=== PATIENT | female | born 1985 | race African-American/Black ===

== ENCOUNTER 2024-06-13 22:09 | Observation (INO) ==
--- NOTE | 2024-06-14 00:16 | Emergency Department Note ---
HPI - General Adult General Chief complaint: General Complaint Stated complaint: SICKLE CELL CRISIS Source: patient Mode of arrival: walk-in Limitations: no limitations History of Present Illness HPI narrative: This patient is 58 years old female with past medical history of sickle cell disease congestive heart failure liver cirrhosis and atrial fibrillation who presents to the ED with complaint of allover body aches worsening for the past several days. Patient states that her body aches started on Tuesday and have been getting worse.Patient states that she thinks maybe her hemoglobin has gone low.She ranks the pain as 8/10 on pain scale. Rest of the vital signs are normal. Patient denies chest pain, headache, nausea vomiting. Onset (ago): day(s) Radiation: Reports non-radiation Severity: moderate Quality: Reports other Pain Consistency: Reports constant Relieving factors: Reports none Exacerbating factors: Reports none Associated symptoms: Reports denies other symptoms Treatments prior to arrival: Reports none Related Data Home Medications Medication Instructions Recorded Confirmed amiodarone 200 mg tablet 200 mg PO BID 03/10/24 06/14/24 cholecalciferol (vitamin D3) 25 25 mcg PO BID 03/10/24 06/14/24 mcg (1,000 unit) capsule (Vitamin D3) folic acid 1 mg tablet 1 mg PO BID 03/10/24 06/14/24 hydromorphone 4 mg tablet 4 mg PO TID 03/10/24 06/14/24 levothyroxine 75 mcg tablet 75 mcg PO DAILY 03/10/24 06/14/24 magnesium oxide 400 mg (241.3 mg 400 mg PO DAILY 03/10/24 06/14/24 magnesium) tablet midodrine 5 mg tablet 5 mg PO TID 03/10/24 06/14/24 oxycodone myristate 18 mg capsule 18 mg PO BID 03/10/24 06/14/24 sprinkle extended release 12hr(DON'T CRUSH) (Xtampza ER) vitamin B complex-vitamin C-folic 1 tab PO DAILY 03/10/24 06/14/24 acid 0.8 mg tablet (Dominique-Joseph) hydroxyurea 500 mg capsule 500 mg PO Q12H 03/30/24 06/14/24 Allergies Allergy/AdvReac Type Severity Reaction Status Date / Time adhesive tape Allergy Mild Rash Verified 06/13/24 22:58 ceftriaxone (From Rocephin) Allergy Mild Anaphylaxis Verified 06/13/24 22:58 iron Allergy Mild Anaphylaxis Verified 06/13/24 22:58 levofloxacin (From Levaquin) Allergy Mild Anaphylaxis Verified 06/13/24 22:58 morphine Allergy Mild Anaphylaxis Verified 06/13/24 22:58 Review of Systems Status of ROS 10 or more systems reviewed and unremark able except as noted in history and below Constitutional Denies: fever, chills, change in weight or fatigue Eyes Denies: change in vision, blurry vision, blind spots, light sensitivity or eye discomfort Ears, nose, mouth, and throat Denies: throat pain, neck pain, throat swelling, difficulty swallowing, hoarseness or mouth pain Cardiovascular Denies: chest pain, palpitations, edema, swelling of feet/ankles, lightheadedness or shortness of breath with exertion Respiratory Denies: shortness of breath, cough, wheezing, stridor, pain on inspiration or change in phlegm color Gastrointestinal Denies: abdominal pain, nausea, vomiting or coffee grounds in vomit Genitourinary Denies: painful urination, urinary frequency, urinary urgency or urinary incontinence Musculoskeletal Denies: back pain, neck pain, extremity pain, extremity swelling or joint pain Integumentary/Breast Denies: rash, itching, redness, skin pain, skin tenderness or skin swelling Neurological Denies: headache, numbness in extremities, weakness in extremities or lack of coordination Psychiatric Denies: anxiety, mood swings, panic attacks, change in sleep pattern or hopelessness Endocrine Denies: excessive urination, excessive thirst, fatigue, cold intolerance or excessive sweating Hematologic/Lymphatic Denies: easy bruising, easy bleeding or enlarged lymph nodes Allergic/Immunologic Denies: hives, throat swelling, tongue swelling or facial swelling [facility] Medical History (Updated 03/30/24 @ 17:01 by Jasmina Garcia RN) Anemia Atrial flutter CHF (congestive heart failure) Sickle cell anemia Surgical History (Updated 03/30/24 @ 17:01 by Jasmina Garcia RN) History of removal of Port-a-Cath Hx of cholecystectomy Social History Smoking status: never smoker Within the past year, how often did you have a drink containing alcohol: never Score interpretation: A score less than 3 is consistent with normal alcohol consumption. Non-prescribed substance use: denies use What is your current living situation: I presently have a place to live Problems where you live: no known problems In the past 12 months, utilities in danger of being shut off: no In past 12 months, lack of transportation kept you from medical appts, meetings, work, or getting things needed for daily living: No Highest level of school completed/degree received: College Little interest or pleasure in doing things: not at all Feeling down, depressed, or hopeless: not at all Feel stressed/tense/nervous/anxious/difficulty sleeping: not at all Life stressors: other Life stressor details: 1 Due to disability, difficulty making decisions: No Exam Constitutional: no apparent distress and no limitations Vital Signs - 24 hr 06/13/24 22:40 06/13/24 23:00 06/13/24 23:30 Temperature 98.5 F Pulse Rate 74 76 74 Respiratory Rate 16 15 15 Blood Pressure 121/73 110/70 108/65 Pulse Oximetry 100 99 99 Oxygen Delivery Me thod Room Air 06/14/24 00:00 06/14/24 00:30 06/14/24 01:00 Temperature 98.5 F Pulse Rate 80 81 76 Respiratory Rate 15 16 16 Blood Pressure 135/79 113/63 94/57 Pulse Oximetry 98 99 99 Oxygen Delivery Me thod Room Air 06/14/24 01:30 06/14/24 02:00 Temperature 98.5 F 98.5 F Pulse Rate 75 73 Respiratory Rate 16 16 Blood Pressure 97/55 93/54 Pulse Oximetry 99 99 Oxygen Delivery Me thod Room Air Room Air HENMT: normocephalic, head/scalp atraumatic, hearing grossly normal bilaterally and external ears normal Eyes: PERRL, EOMs intact bilaterally, conjunctivae normal and no scleral icterus Neck/C-Spine: visual inspection normal, trachea midline, cervical spine nontender and cervical full ROM noted Lymph: no lymphadenopathy noted and no lymphedema noted Chest: inspection of chest normal and palpation of chest normal Respiratory: breath sounds equal bilaterally, normal respiratory effort and clear to auscultation bilaterally Cardiovascular: normal heart rate noted, regular rhythm noted, no gallop and no rub Gastrointestinal: abdomen normal to inspection, abdomen soft to palpation and nontender to palpation Genitourinary: no CVA tenderness, bladder normal to palpation and external appearance normal Back/Pelvis: spine normal to inspection, no thoracic spine tenderness and no lumbar spine tenderness Extremities: normal to inspection and normal to palpation Neurology: milieu manager II-XII intact, no movement abnormality noted and no focal motor deficit noted Psychiatry: mental status grossly normal, oriented x3, thought process normal and cooperative Feel stressed/tense/nervous/anxious/difficulty sleeping: not at all Due to disability, difficulty making decisions: No Skin: skin color normal and no rash Course Course Hospital Course: This patient is 38 years old female with a history of sickle cell anemia who presents to the ED with complaint of general body ache for the past 1 week. We have obtained the labs and the patient has noted a hemoglobin of 5.8 and hematocrit of 16.8. Patient has also been found to have elevated white blood cell count. We will admit the patient to observation in order to transfuse the patient. Vital Signs Vital signs: Vital Signs Temperature 98.5 F 06/13/24 22:40 Pulse Rate 74 06/13/24 22:40 Respiratory Rate 16 06/13/24 22:40 Blood Pressure 121/73 06/13/24 22:40 Pulse Oximetry 100 06/13/24 22:40 Oxygen Delivery Method Room Air 06/13/24 22:40 Temperature 98.5 F 06/14/24 03:00 Pulse Rate 78 06/14/24 03:00 Respiratory Rate 16 06/14/24 03:00 Blood Pressure 101/58 06/14/24 03:00 Pulse Oximetry 99 06/14/24 03:00 Oxygen Delivery Method Room Air 06/14/24 03:00 Medical Decision Making Lab Data Labs: Lab Results 06/13/24 06/13/24 Range/Units 00:10 23:25 WBC 21.8 H* (4.3-9.3) K/uL RBC 1.9 L (4.00-5.50) M/uL Hgb 5.8 L* (12.5-15.8) gm/dL Hct 16.8 L* (35.9-46.7) % MCV 89.0 (81.0-93.7) fl MCH 30.4 (27.6-32.2) pg MCHC 34.2 (33.1-35.3) g/dl RDW 17.8 H (11.4-14.2) % Plt Count 400 H (152-353) K/uL MPV 9.6 (6.9-10.8) fl Gran % 37.6 L (47.8-71.3) % Lymph % (Auto) 49.8 H (20.0-43.0) % [place] % (Auto) 8.8 (3.6-9.8) % Eos % (Auto) 1.8 (0.4-2.8) % Baso % (Auto) 2.0 H (0.1-0.85) Lymph # (Auto) 10.9 H (1.1-3.1) [place] # (Auto) 1.9 (1.1-3.1) Eos # (Auto) 0.4 H (0.0-0.2) Baso # (Auto) 0.4 H (0.0-0.1) Absolute Gran (auto) 8.2 H (2.3-6.0) Sodium 141 (136-145) mmol/L Potassium 4.1 (3.6-5.2) mmol/L Chloride 105.0 (98-107) mmol/L Carbon Dioxide 21 (21-32) mmol/L Anion Gap 15.0 H (4-14) mEq/L BUN 30 H (7-18) mg/dL Creatinine 1.4 H (0.6-1.3) mg/dL Estimated GFR 49.7 (>59.9) Glucose 146 H (70-110) mg/dL Calcium 8.4 L (8.5-10.1) mg/dL Total Bilirubin 4.11 H (0.0-1.0) mg/dL AST 119 H (15-37) U/L ALT 94 H (30-65) U/L Alkaline Phosphatase 204 H (50-136) U/L Total Protein 8.0 (6.4-8.2) g/dL Albumin 3.4 (3.4-5.0) g/dL Urine Color Jessica (STRAW/YELL.) Urine Appearance Clear (CLEAR) Ur Specific [place] 1.010 (1.001-1.035) Urine Protein Negative (NEGATIVE) Urine Glucose (UA) Normal (NORMAL) Urine Ketones Negative (NEGATIVE) Urine Occult Blood Negative (NEG - TRACE) Urine Nitrite Negative (NEGATIVE) Urine Bilirubin Negative (NEGATIVE) Urine Urobilinogen Normal (NORMAL) Ur Leukocyte Esterase Negative (NEGATIVE) Fluid pH 5.0 (5 - 9) Discharge Plan Discharge Patient Disposition: Admitted As Observation Condition: Stable Clinical Impression: ARELI (acute kidney injury), Anemia, Leukocytosis Interventions: ED Discharge Assessment Last Done: 06/14/24 03:00 ED Discharge Vital Sign Last Done: 06/14/24 03:00 Emergency Department Charge Sheet Last Done: 06/13/24 23:55 Time of Disposition: 02:27 Discharge Date/Time: 06/14/24 03:00
[2024-06-14 00:18] LABS: Potassium 4.1 mmol/L (3.6-5.2)
[2024-06-14] MEDS: diphenhydrAMINE HCL 50 MG/ML VIAL INJ ONE (00:26)
[2024-06-14 00:53] LABS: Basophils #(Absolute) Auto 0.4 (0.0-0.1); Eosinophils#(Absolute)Auto 0.4 (0.0-0.2); Eosinophils%(Percent) Auto 1.8 % (0.4-2.8); Granulocytes % - Auto 37.6 % (47.8-71.3); Granulocytes#(Absolute)- Auto 8.2 (2.3-6.0); Monocytes #(Absolute)- Auto 1.9 (1.1-3.1); Monocytes %(Percent)- Auto 8.8 % (3.6-9.8); Platelet Count 400 K/uL (152-353)
[2024-06-14 00:56] LABS: Hematocrit 16.8 % (35.9-46.7); White Blood Count 21.8 K/uL (4.3-9.3)
[2024-06-14 02:26] LABS: Urine Appearance CLEAR (CLEAR); Urine Blood NEGATIVE (NEG - TRACE); Urine Color AMBER (STRAW/YELL.); Urine Urobilinogen Normal (NORMAL)
[2024-06-14] MEDS ORDERED: ACETAMINOPHEN 325 MG TABLET PO PRN (02:30)
[2024-06-14] MEDS ORDERED: ONDANSETRON HCL/PF 4 MG/2 ML VIAL INJ PRN (02:30)
[2024-06-14] MEDS ORDERED: PIPERACILLIN SODIUM/TAZOBACTAM 3.375 GM VIAL IV ONE (02:52)
[2024-06-14] MEDS ORDERED: 0.9 % SODIUM CHLORIDE MB+ 100 ML IV ONE (02:52)
[2024-06-14] MEDS: PIPERACILLIN/TAZOBACTAM 3.375 3.375 GM in 0.9 % SODIUM CHLORIDE MB+ 100 ML IV SCH (02:53)
[2024-06-14] MEDS: SODIUM CHLORIDE IV SCH (03:40)
[2024-06-14] MEDS: DEXTROSE IV SCH (03:40)
[2024-06-14] MEDS: diphenhydrAMINE HCL 50 MG/ML VIAL ONE (06:02)
[2024-06-14] MEDS: diphenhydrAMINE HCL 50 MG/ML VIAL INJ PRN (06:02)
[2024-06-14 06:42] LABS: Basophils #(Absolute) Auto 0.3 (0.0-0.1); Basophils%(Percent) Auto 1.3 (0.1-0.85); Eosinophils#(Absolute)Auto 0.4 (0.0-0.2); Eosinophils%(Percent) Auto 2.1 % (0.4-2.8); Granulocytes % - Auto 37.5 % (47.8-71.3); Granulocytes#(Absolute)- Auto 7.5 (2.3-6.0); Monocytes %(Percent)- Auto 9.9 % (3.6-9.8); Platelet Count 380 K/uL (152-353)
[2024-06-14 06:49] LABS: Hematocrit 16.1 % (35.9-46.7)
[2024-06-14 06:55] LABS: Potassium 4.2 mmol/L (3.6-5.2)
[2024-06-14] MEDS: PANTOPRAZOLE SODIUM 40 MG TABLET.DR PO SCH (09:28)
[2024-06-14] MEDS: diphenhydrAMINE HCL 50 MG/ML VIAL INJ SCH (15:06)
[2024-06-14] MEDS: 0.9 % SODIUM CHLORIDE 250 ML IV ONE (15:07)
[2024-06-14] MEDS ORDERED: B COMPLEX VITAMIN C FOLIC ACID 0.8 MG PO SCH (16:00)
[2024-06-14] MEDS: MIDODRINE HCL 5 MG TABLET PO SCH (16:10)
[2024-06-14] MEDS: MAGNESIUM OXIDE 400 MG TABLET PO SCH (16:11)
[2024-06-14] MEDS: HYDROXYUREA 500 MG CAPSULE PO SCH (16:11)
[2024-06-14] MEDS: LEVOTHYROXINE SODIUM 75 MCG TABLET PO SCH (16:11)
--- NOTE | 2024-06-14 16:42 | History & Physical Report ---
H&P: HPI History of Present Illness Chief complaint: ANEMIA,ARELI,LEUKOCYTOSIS Narrative: This patient is 58 years old female with past medical history of sickle cell disease congestive heart failure liver cirrhosis and atrial fibrillation who presents to the ED with complaint of allover body aches worsening for the past several days. Patient states that her body aches started on Tuesday and have been getting worse.Patient states that she thinks maybe her hemoglobin has gone low.She ranks the pain as 8/10 on pain scale. Rest of the vital signs are normal. Patient denies chest pain, headache, nausea vomiting. Admitted to med/surg for observation and treatment. Review of Systems Status of ROS 10 or more systems reviewed and unremark able except as noted in history and below Constitutional Denies: fever, chills, change in weight or fatigue Eyes Denies: change in vision, blurry vision, blind spots, light sensitivity or eye discomfort Ears, nose, mouth, and throat Denies: throat pain, neck pain, throat swelling, difficulty swallowing, hoarseness or mouth pain Cardiovascular Denies: chest pain, palpitations, edema, swelling of feet/ankles, lightheadedness or shortness of breath with exertion Respiratory Denies: shortness of breath, cough, wheezing, stridor, pain on inspiration or change in phlegm color Gastrointestinal Denies: abdominal pain, nausea, vomiting, coffee grounds in vomit or difficulty swallowing Genitourinary Denies: painful urination, urinary frequency, urinary urgency or urinary incontinence Musculoskeletal Denies: back pain, neck pain, extremity pain, extremity sw elling or joint pain Integumentary/Breast Denies: rash, itching, redness, skin pain, skin tenderness or skin swelling Neurological Denies: headache, numbness in extremities, weakness in extremities or lack of coordination Psychiatric Denies: anxiety, mood swings, panic attacks, change in sleep pattern or hopelessness Endocrine Denies: excessive urination, excessive thirst, fatigue, cold intolerance or excessive sweating Hematologic/Lymphatic Denies: easy bruising, easy bleeding or enlarged lymph nodes Allergic/Immunologic Denies: hives, throat swelling, tongue swelling, facial swelling or wheezing [facility] Medical History (Updated 06/15/24 @ 07:36 by Odalys Perry DO) Liver function failure Acquired hyperbilirubinemia Intractable pain Anemia CHF (congestive heart failure) Sickle cell anemia Atrial flutter Surgical History (Updated 03/30/24 @ 17:01 by Jasmina Garcia RN) History of removal of Port-a-Cath Hx of cholecystectomy Social History Smoking status: never smoker Within the past year, how often did you have a drink containing alcohol: never Score interpretation: A score less than 3 is consistent with normal alcohol consumption. Non-prescribed substance use: denies use What is your current living situation: I presently have a place to live Problems where you live: no known problems In the past 12 months, utilities in danger of being shut off: no In past 12 months, lack of transportation kept you from medical appts, meetings, work, or getting things needed for daily living: No Highest level of school completed/degree received: College Little interest or pleasure in doing things: not at all Feeling down, depressed, or hopeless: not at all Feel stressed/tense/nervous/anxious/difficulty sleeping: not at all Life stressors: other Life stressor details: 1 Due to disability, difficulty making decisions: No Meds Home Medications and Allergies Home Medications Medication Instructions Recorded Confirmed Type amiodarone 200 mg tablet 200 mg PO BID 03/10/24 06/14/24 History cholecalciferol (vitamin D3) 25 50 mcg PO DAILY 03/10/24 06/14/24 History mcg (1,000 unit) capsule (Vitamin D3) folic acid 1 mg tablet 1 mg PO BID 03/10/24 06/14/24 History hydromorphone 4 mg tablet 4 mg PO TID 03/10/24 06/14/24 History levothyroxine 75 mcg tablet 75 mcg PO DAILY 03/10/24 06/14/24 History magnesium oxide 400 mg (241.3 mg 400 mg PO DAILY 03/10/24 06/14/24 History magnesium) tablet midodrine 5 mg tablet 5 mg PO TID 03/10/24 06/14/24 History oxycodone myristate 18 mg capsule 18 mg PO BID 03/10/24 06/14/24 History sprinkle extended release 12hr(DON'T CRUSH) (Xtampza ER) vitamin B complex-vitamin C-folic 1 tab PO DAILY 03/10/24 06/14/24 History acid 0.8 mg tablet (Dominique-Joseph) hydroxyurea 500 mg capsule 500 mg PO Q12H 03/30/24 06/14/24 History Allergies Allergy/AdvReac Type Severity Reaction Status Date / Time adhesive tape Allergy Mild Rash Verified 06/13/24 22:58 ceftriaxone (From Rocephin) Allergy Mild Anaphylaxis Verified 06/13/24 22:58 iron Allergy Mild Anaphylaxis Verified 06/13/24 22:58 levofloxacin (From Levaquin) Allergy Mild Anaphylaxis Verified 06/13/24 22:58 morphine Allergy Mild Anaphylaxis Verified 06/13/24 22:58 Exam Exam: Patient laying in bed on left side upon entering room for exam. Constitutional: abnormal general appearance (chronically ill), no apparent distress, no limitations and alert Vital Signs - 24 hr 06/13/24 22:40 06/13/24 23:00 06/13/24 23:30 Temperature 98.5 F Pulse Rate 74 76 74 Pulse Rate [Left B rachial] Respiratory Rate 16 15 15 Blood Pressure 121/73 110/70 108/65 Blood Pressure [Le ft Arm] Pulse Oximetry 100 99 99 Oxygen Delivery Nh thod Room Air 06/14/24 00:00 06/14/24 00:30 06/14/24 01:00 Temperature 98.5 F Pulse Rate 80 81 76 Pulse Rate [Left B rachial] Respiratory Rate 15 16 16 Blood Pressure 135/79 113/63 94/57 Blood Pressure [Le ft Arm] Pulse Oximetry 98 99 [facility] 06/14/[facility] 01:30 06/14/24 02:00 06/14/24 02:57 Temperature 98.5 F 98.5 F Pulse Rate 75 73 Pulse Rate [Left B rachial] Respiratory Rate 16 16 Blood Pressure 97/55 93/54 Blood Pressure [Le ft Arm] Pulse Oximetry 99 99 [facility] Air Room Air 06/14/24 02:57 06/14/24 03:00 06/14/24 03:00 Temperature 98.4 F 98.5 F 98.5 F Pulse Rate 78 78 Pulse Rate [Left B rachial] 72 Respiratory Rate 20 16 16 Blood Pressure 101/58 101/58 Blood Pressure [Le ft Arm] 125/65 Pulse Oximetry 100 99 99 [facility] 06/14/24 07:59 06/14/24 15:45 Temperature 98.4 F 98.1 F Pulse Rate 77 Pulse Rate [Left B rachial] 58 L Respiratory Rate 19 18 Blood Pressure 97/46 Blood Pressure [Le ft Arm] 102/65 Pulse Oximetry 100 98 Oxygen Delivery Me thod Room Air HENMT: normocephalic, head/scalp atraumatic, hearing grossly normal bilaterally and external ears normal Eyes: PERRL, EOMs intact bilaterally, conjunctivae normal and no scleral icterus Neck/C-Spine: visual inspection normal, trachea midline, cervical spine nontender and cervical full ROM noted Lymph: no lymphadenopathy noted and no lymphedema noted Chest: inspection of chest normal and palpation of chest normal Respiratory: breath sounds equal bilaterally, normal respiratory effort and clear to auscultation bilaterally Cardiovascular: normal heart rate noted, regular rhythm noted, no gallop and no rub Gastrointestinal: abdomen normal to inspection, abdomen soft to palpation and nontender to palpation Genitourinary: no CVA tenderness, bladder normal to palpation and external appearance normal Back/Pelvis: spine normal to inspection, no thoracic spine tenderness and no lumbar spine tenderness Extremities: normal to inspection and normal to palpation Neurology: music pastor II-XII intact, no movement abnormality noted and no focal motor deficit noted Psychiatry: mental status grossly normal, oriented x3, thought process normal and cooperative Skin: skin color normal and no rash Assessment and Plan Assessment and Plan (1) Sickle cell anemia with crisis: Code(s): D57.00 - Hb-SS disease with crisis, unspecified (2) Acute kidney injury: Code(s): N17.9 - Acute kidney failure, unspecified (3) Dehydration: Code(s): E86.0 - Dehydration (4) Intractable pain: Code(s): R52 - Pain, unspecified (5) Liver function failure: Qualifiers: Liver failure chronicity: chronic Hepatic coma status: without hepatic coma Qualified Code(s): K72.10 - Chronic hepatic failure without coma Code(s): K72.90 - Hepatic failure, unspecified without coma (6) Acquired hyperbilirubinemia: Code(s): E80.6 - Other disorders of bilirubin metabolism (7) Sickle cell anemia: Qualifiers: Sickle-cell associated disorders: with crisis with other complication Qualified Code(s): 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 Code(s): D57.1 - Sickle-cell disease without crisis (8) CHF (congestive heart failure): Qualifiers: Heart failure chronicity: chronic Heart failure type: unspecified Qualified Code(s): I50.9 - Heart failure, unspecified Code(s): I50.9 - Heart failure, unspecified Plan Dextrose/Sodium Chloride 1,000 mls @ 100 mls/hr IV CONT Piperacillin Sod/Tazobactam Sod3.375 gm in Sodium Chloride 100 mls @ 200 mls/hr IV Q6H Pantoprazole Sodium 40 mg PO Daily Diphenhydramine Hcl 50 mg INJ Q6H Amiodarone Hcl 200 mg PO BID Cholecalciferol 2,000 unit PO BID Folic Acid 1 mg PO BID Hydroxyurea 500 mg PO Q12H Levothyroxine Sodium 75 mcg PO QDAC Magnesium Oxide 400 mg PO Daily Midodrine 5 mg PO TID Dominique-Joseph (1) tab PO Daily Acetaminophen 650 mg PO Q4H PRN Hydromorphone Hcl 1 mg IV Q4H PRN Ondansetron Hcl 4 mg INJ Q6H PRN Results Labs Labs: CBC WBC 20.0 K/uL (4.3-9.3) H 06/14/24 06:23 RBC 1.8 M/uL (4.00-5.50) L 06/14/24 06:23 Hgb 5.4 gm/dL (12.5-15.8) L* 06/14/24 06:23 Hct 16.1 % (35.9-46.7) L* 06/14/24 06:23 MCV 89.0 fl (81.0-93.7) 06/14/24 06:23 MCH 29.7 pg (27.6-32.2) 06/14/24 06:23 MCHC 33.4 g/dl (33.1-35.3) 06/14/24 06:23 RDW 17.8 % (11.4-14.2) H 06/14/24 06:23 Plt Count 380 K/uL (152-353) H 06/14/24 06:23 MPV 8.6 fl (6.9-10.8) 06/14/24 06:23 Gran % 37.5 % (47.8-71.3) L 06/14/24 06:23 Lymph % (Auto) 49.2 % (20.0-43.0) H 06/14/24 06:23 [place] % (Auto) 9.9 % (3.6-9.8) H 06/14/24 06:23 Eos % (Auto) 2.1 % (0.4-2.8) 06/14/24 06:23 Baso % (Auto) 1.3 (0.1-0.85) H 06/14/24 06:23 Lymph # (Auto) 9.8 (1.1-3.1) H 06/14/24 06:23 [place] # (Auto) 2.0 (1.1-3.1) 06/14/24 06:23 Eos # (Auto) 0.4 (0.0-0.2) H 06/14/24 06:23 Baso # (Auto) 0.3 (0.0-0.1) H 06/14/24 06:23 Absolute Gran (auto) 7.5 (2.3-6.0) H 06/14/24 06:23 BMP Sodium 142 mmol/L (136-145) 06/14/24 06:23 Potassium 4.2 mmol/L (3.6-5.2) 06/14/24 06:23 Chloride 109.0 mmol/L (98-107) H 06/14/24 06:23 Carbon Dioxide 23 mmol/L (21-32) 06/14/24 06:23 Anion Gap 10.0 mEq/L (4-14) 06/14/24 06:23 BUN 27 mg/dL (7-18) H 06/14/24 06:23 Creatinine 1.2 mg/dL (0.6-1.3) 06/14/24 06:23 Estimated GFR 59.8 (>59.9) 06/14/24 06:23 Glucose 146 mg/dL (70-110) H 06/14/24 06:23 Calcium 8.1 mg/dL (8.5-10.1) L 06/14/24 06:23 Total Bilirubin 3.77 mg/dL (0.0-1.0) H 06/14/24 06:23 AST 107 U/L (15-37) H 06/14/24 06:23 ALT 83 U/L (30-65) H 06/14/24 06:23 Alkaline Phosphatase 181 U/L (50-136) H 06/14/24 06:23 Total Protein 7.4 g/dL (6.4-8.2) 06/14/24 06:23 Albumin 3.0 g/dL (3.4-5.0) L 06/14/24 06:23 Liver Function Total Bilirubin 3.77 mg/dL (0.0-1.0) H 06/14/24 06:23 AST 107 U/L (15-37) H 06/14/24 06:23 ALT 83 U/L (30-65) H 06/14/24 06:23 Alkaline Phosphatase 181 U/L (50-136) H 06/14/24 06:23 Total Protein 7.4 g/dL (6.4-8.2) 06/14/24 06:23 Albumin 3.0 g/dL (3.4-5.0) L 06/14/24 06:23 Urine Urine Color Jessica (STRAW/YELL.) 06/13/24 00:10 Urine Appearance Clear (CLEAR) 06/13/24 00:10 Ur Specific [place] 1.010 (1.001-1.035) 06/13/24 00:10 Urine Protein Negative (NEGATIVE) 06/13/24 00:10 Urine Glucose (UA) Normal (NORMAL) 06/13/24 00:10 Urine Ketones Negative (NEGATIVE) 06/13/24 00:10 Urine Occult Blood Negative (NEG - TRACE) 06/13/24 00:10 Urine Nitrite Negative (NEGATIVE) 06/13/24 00:10 Urine Bilirubin Negative (NEGATIVE) 06/13/24 00:10 Urine Urobilinogen Normal (NORMAL) 06/13/24 00:10 Ur Leukocyte Esterase Negative (NEGATIVE) 06/13/24 00:10
[2024-06-14] MEDS: AMIODARONE HCL 200 MG TABLET PO SCH (20:43)
[2024-06-14] MEDS: FOLIC ACID 1 MG TABLET PO SCH (20:43)
[2024-06-14] MEDS: CHOLECALCIFEROL 1,000 UNITS TABLET (25 MCG) PO SCH (20:43)
[2024-06-15 05:10] LABS: Basophils #(Absolute) Auto 0.2 (0.0-0.1); Granulocytes#(Absolute)- Auto 7.8 (2.3-6.0)
[2024-06-15 05:11] LABS: Basophils%(Percent) Auto 1.4 (0.1-0.85); Eosinophils#(Absolute)Auto 0.4 (0.0-0.2); Eosinophils%(Percent) Auto 3.1 % (0.4-2.8); Granulocytes % - Auto 58.5 % (47.8-71.3); Mean Corpuscular Volume 88.4 fl (81.0-93.7); Monocytes #(Absolute)- Auto 1.6 (1.1-3.1); Platelet Count 320 K/uL (152-353); White Blood Count 13.3 K/uL (4.3-9.3)
[2024-06-15 05:29] LABS: Hematocrit 17.8 % (35.9-46.7)
[2024-06-15 05:45] LABS: Potassium 4.1 mmol/L (3.6-5.2)
[2024-06-15] MEDS: B COMPLEX VITAMIN C FOLIC ACID 0.8 MG PO SCH (09:25)
--- NOTE | 2024-06-15 16:47 | Progress Note ---
Progress Note: Subjective Subjective Interval history: This patient is 58 years old female with past medical history of sickle cell disease congestive heart failure liver cirrhosis and atrial fibrillation who was admitted to med/surg on 06/14/24. Chief complaint of patient today is pain control. Patient expressed she is still not feeling well and not comfortable being discharged today. Exam Exam: Patient laying in bed on left side upon entering room for exam. Constitutional: abnormal general appearance (chronically ill), no apparent distress, no limitations and alert Vital Signs - 24 hr 06/14/24 17:00 06/14/24 17:10 06/14/24 18:15 Temperature 98.8 F 98.8 F 98.9 F Pulse Rate 77 77 Pulse Rate [Left B rachial] 77 Respiratory Rate 19 19 19 Blood Pressure 91/52 112/58 Blood Pressure [Le ft Arm] 91/52 Pulse Oximetry 99 Oxygen Delivery Me thod Room Air 06/14/24 19:27 06/14/24 20:43 06/15/24 04:29 Temperature 98.7 F Pulse Rate 66 66 66 Pulse Rate [Left B rachial] Respiratory Rate 18 Blood Pressure 95/53 Blood Pressure [Le ft Arm] Pulse Oximetry 99 Oxygen Delivery Me thod 06/15/24 08:00 06/15/24 08:25 06/15/24 09:25 Temperature 98.3 F Pulse Rate 71 Pulse Rate [Left B rachial] 71 Respiratory Rate 19 Blood Pressure 111/62 114/70 Blood Pressure [Le ft Arm] 111/62 Pulse Oximetry 100 Oxygen Delivery Me thod Room Air 06/15/24 12:00 Temperature 98.7 F Pulse Rate Pulse Rate [Left B rachial] 72 Respiratory Rate 19 Blood Pressure Blood Pressure [Le ft Arm] 128/74 Pulse Oximetry Oxygen Delivery Me thod Room Air HENMT: normocephalic, head/scalp atraumatic, hearing grossly normal bilaterally and external ears normal Eyes: PERRL, EOMs intact bilaterally, conjunctivae normal and no scleral icterus Neck/C-Spine: visual inspection normal, trachea midline, cervical spine nontender and cervical full ROM noted Lymph: no lymphadenopathy noted and no lymphedema noted Chest: inspection of chest normal and palpation of chest normal Respiratory: breath sounds equal bilaterally, normal respiratory effort and clear to auscultation bilaterally Cardiovascular: normal heart rate noted, regular rhythm noted, no gallop and no rub Gastrointestinal: abdomen normal to inspection, abdomen soft to palpation and nontender to palpation Genitourinary: no CVA tenderness, bladder normal to palpation and external appearance normal Back/Pelvis: spine normal to inspection, no thoracic spine tenderness and no lumbar spine tenderness Extremities: normal to inspection and normal to palpation Neurology: screw down II-XII intact, no movement abnormality noted and no focal motor deficit noted Psychiatry: mental status grossly normal, oriented x3, thought process normal and cooperative Skin: skin color normal and no rash Progress Note: Objective Labs Labs: CBC WBC 13.3 K/uL (4.3-9.3) H 06/15/24 05:15 RBC 2.0 M/uL (4.00-5.50) L 06/15/24 05:15 Hgb 6.3 gm/dL (12.5-15.8) L* 06/15/24 05:15 Hct 17.8 % (35.9-46.7) L* 06/15/24 05:15 MCV 88.4 fl (81.0-93.7) 06/15/24 05:15 MCH 31.2 pg (27.6-32.2) 06/15/24 05:15 MCHC 35.3 g/dl (33.1-35.3) 06/15/24 05:15 RDW 17.5 % (11.4-14.2) H 06/15/24 05:15 Plt Count 320 K/uL (152-353) 06/15/24 05:15 MPV 8.8 fl (6.9-10.8) 06/15/24 05:15 Gran % 58.5 % (47.8-71.3) 06/15/24 05:15 Lymph % (Auto) 25.0 % (20.0-43.0) 06/15/24 05:15 [place] % (Auto) 12.0 % (3.6-9.8) H 06/15/24 05:15 Eos % (Auto) 3.1 % (0.4-2.8) H 06/15/24 05:15 Baso % (Auto) 1.4 (0.1-0.85) H 06/15/24 05:15 Lymph # (Auto) 3.3 (1.1-3.1) H 06/15/24 05:15 [place] # (Auto) 1.6 (1.1-3.1) 06/15/24 05:15 Eos # (Auto) 0.4 (0.0-0.2) H 06/15/24 05:15 Baso # (Auto) 0.2 (0.0-0.1) H 06/15/24 05:15 Absolute Gran (auto) 7.8 (2.3-6.0) H 06/15/24 05:15 BMP Sodium 142 mmol/L (136-145) 06/15/24 05:15 Potassium 4.1 mmol/L (3.6-5.2) 06/15/24 05:15 Chloride 110.0 mmol/L (98-107) H 06/15/24 05:15 Carbon Dioxide 20 mmol/L (21-32) L 06/15/24 05:15 Anion Gap 12.0 mEq/L (4-14) 06/15/24 05:15 BUN 13 mg/dL (7-18) 06/15/24 05:15 Creatinine 0.9 mg/dL (0.6-1.3) 06/15/24 05:15 Estimated GFR 84.4 (>59.9) 06/15/24 05:15 Glucose 190 mg/dL (70-110) H 06/15/24 05:15 Calcium 8.1 mg/dL (8.5-10.1) L 06/15/24 05:15 Phosphorus 4.2 mg/dL (2.5-4.9) 06/15/24 05:15 Magnesium 1.6 mg/dL (1.8-2.4) L 06/15/24 05:15 Total Bilirubin 3.34 mg/dL (0.0-1.0) H 06/15/24 05:15 AST 106 U/L (15-37) H 06/15/24 05:15 ALT 72 U/L (30-65) H 06/15/24 05:15 Alkaline Phosphatase 165 U/L (50-136) H 06/15/24 05:15 Total Protein 7.0 g/dL (6.4-8.2) 06/15/24 05:15 Albumin 2.8 g/dL (3.4-5.0) L 06/15/24 05:15 Liver Function Total Bilirubin 3.34 mg/dL (0.0-1.0) H 06/15/24 05:15 AST 106 U/L (15-37) H 06/15/24 05:15 ALT 72 U/L (30-65) H 06/15/24 05:15 Alkaline Phosphatase 165 U/L (50-136) H 06/15/24 05:15 Total Protein 7.0 g/dL (6.4-8.2) 06/15/24 05:15 Albumin 2.8 g/dL (3.4-5.0) L 06/15/24 05:15 Urine Urine Color Jessica (STRAW/YELL.) 06/13/24 00:10 Urine Appearance Clear (CLEAR) 06/13/24 00:10 Ur Specific [place] 1.010 (1.001-1.035) 06/13/24 00:10 Urine Protein Negative (NEGATIVE) 06/13/24 00:10 Urine Glucose (UA) Normal (NORMAL) 06/13/24 00:10 Urine Ketones Negative (NEGATIVE) 06/13/24 00:10 Urine Occult Blood Negative (NEG - TRACE) 06/13/24 00:10 Urine Nitrite Negative (NEGATIVE) 06/13/24 00:10 Urine Bilirubin Negative (NEGATIVE) 06/13/24 00:10 Urine Urobilinogen Normal (NORMAL) 06/13/24 00:10 Ur Leukocyte Esterase Negative (NEGATIVE) 06/13/24 00:10 Progress Note: A&P Assessment and Plan (1) Sickle cell anemia with crisis: (2) Acute kidney injury: (3) Dehydration: (4) Intractable pain: (5) Liver function failure: Qualifiers: Liver failure chronicity: chronic Hepatic coma status: without hepatic coma Qualified Code(s): K72.10 - Chronic hepatic failure without coma (6) Acquired hyperbilirubinemia: (7) Sickle cell anemia: Qualifiers: Sickle-cell associated disorders: with crisis with other complication Qualified Code(s): 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 (8) CHF (congestive heart failure): Qualifiers: Heart failure type: unspecified Heart failure chronicity: chronic Qualified Code(s): I50.9 - Heart failure, unspecified Plan Dextrose/Sodium Chloride 1,000 mls @ 100 mls/hr IV CONT Piperacillin Sod/Tazobactam Sod3.375 gm in Sodium Chloride 100 mls @ 200 mls/hr IV Q6H Pantoprazole Sodium 40 mg PO Daily Diphenhydramine Hcl 50 mg INJ Q6H Amiodarone Hcl 200 mg PO BID Cholecalciferol 2,000 unit PO BID Folic Acid 1 mg PO BID Hydroxyurea 500 mg PO Q12H Levothyroxine Sodium 75 mcg PO QDAC Magnesium Oxide 400 mg PO Daily Midodrine 5 mg PO TID Dominique-Joseph (1) tab PO Daily Acetaminophen 650 mg PO Q4H PRN Hydromorphone Hcl 1 mg IV Q4H PRN Ondansetron Hcl 4 mg INJ Q6H PRN Fall Risk Details Jiménez Fall Scale Risk Level: Moderate Fall Risk Current Medications: Current Medications Acetaminophen (Acetaminophen 325 Mg Tablet) 650 mg PO Q4H PRN PRN Reason: Fever OF 100.5 OR GREATER Amiodarone HCl (Amiodarone Hcl 200 Mg Tablet) 200 mg PO BID [facility] Last Admin: 06/15/24 08:25 Dose: 200 mg Cholecalciferol (Cholecalciferol 1,000 Units Tablet (25 Mcg)) 2,000 unit PO BID [facility] Last Admin: 06/15/24 08:26 Dose: 2,000 unit Diphenhydramine HCl (Diphenhydramine Hcl 50 Mg/Ml Vial) 50 mg INJ Q6H [facility] Last Admin: 06/15/24 14:05 Dose: 50 mg Folic Acid (Folic Acid 1 Mg Tablet) 1 mg PO BID [facility] Last Admin: 06/15/24 08:26 Dose: 1 mg Hydromorphone HCl (Hydromorphone 2 Mg/Ml Inj) 1 mg IV Q4H PRN PRN Reason: Pain Last Admin: 06/15/24 14:06 Dose: 1 mg Hydroxyurea (Hydroxyurea 500 Mg Capsule) 500 mg PO Q12H [facility] Last Admin: 06/15/24 04:25 Dose: Not Given Piperacillin Sod/Tazobactam (Sod 3.375 gm/ Sodium Chloride) 100 mls @ 200 mls/hr IV Q6H [facility] Last Infusion: 06/15/24 14:33 Dose: Infused Dextrose/Sodium Chloride (Dextrose 5%-0.9% Nacl Iv 1000 Ml Soln.) 1,000 mls @ 100 mls/hr IV CONT [facility] Last Admin: 06/15/24 08:26 Dose: 100 mls/hr Levothyroxine Sodium (Levothyroxine Sodium 75 Mcg Tablet) 75 mcg PO QDAC [facility] Last Admin: 06/15/24 08:26 Dose: 75 mcg Magnesium (Magnesium Oxide 400 Mg Tablet) 400 mg PO DAILY [facility] Last Admin: 06/15/24 08:25 Dose: 400 mg Midodrine (Midodrine Hcl 5 Mg Tablet) 5 mg PO TID [facility] Last Admin: 06/15/24 08:25 Dose: 5 mg Non-Formulary Medication (B Complex-Vitamin C-Folic Acid [Dominique-Joseph]) 1 tab PO DAILY [facility] Last Admin: 06/15/24 09:25 Dose: Not Given Ondansetron HCl (Ondansetron Hcl/Pf 4 Mg/2 Ml Vial) 4 mg INJ Q6H PRN PRN Reason: nausea/vomiting Pantoprazole Sodium (Pantoprazole Sodium 40 Mg Tablet.) 40 mg PO DAILY [facility] Last Admin: 06/15/24 08:25 Dose: 40 mg Time Spent With Patient Time: Total time spent is greater than 50% in coordination of care (as documented) at patient's floor/unit and/or counseling patient: Time with patient: 25 - 35 minutes
[2024-06-16 05:33] LABS: Eosinophils#(Absolute)Auto 0.4 (0.0-0.2)
[2024-06-16 05:36] LABS: Basophils #(Absolute) Auto 0.3 (0.0-0.1); Basophils%(Percent) Auto 2.3 (0.1-0.85); Eosinophils%(Percent) Auto 3.2 % (0.4-2.8); Granulocytes % - Auto 47.6 % (47.8-71.3); Granulocytes#(Absolute)- Auto 6.7 (2.3-6.0); Mean Corpuscular Volume 87.8 fl (81.0-93.7); Monocytes #(Absolute)- Auto 1.8 (1.1-3.1); Platelet Count 310 K/uL (152-353)
[2024-06-16 05:46] LABS: Hematocrit 17.4 % (35.9-46.7)
[2024-06-16 06:09] LABS: Potassium 4.1 mmol/L (3.6-5.2)
[2024-06-16 08:06] VITALS: RESP 18
--- NOTE | 2024-06-16 10:51 | Discharge Summary ---
DS: Providers Provider Date of admission: 06/14/24 02:30 Primary care physician: Alexandre Solis Admitting clinician: Sasha Caro Attending physician on admission: Odalys Perry Attending physician on discharge: Odalys Perry Discharging clinician: Kathrin Diana Anticipated date of discharge: 06/16/24 DS: Diagnosis Discharge Diagnosis (1) Sickle cell anemia with crisis: Assessment and plan: Dextrose/Sodium Chloride 1,000 mls @ 100 mls/hr IV Hydromorphone Hcl 1 mg IV Q4H PRN Ondansetron Hcl 4 mg INJ Q6H PRN 1 unit of PRBCs transfused Daily CBC, CMP, retic count Continue home medications as directed. (2) Acute kidney injury: Assessment and plan: Dextrose/Sodium Chloride 1,000 mls @ 100 mls/hr IV Monitor intake and output Encourage fluids to maintain hydration Vital signs per protocol Daily weight Daily CBC, CMP (3) Dehydration: Assessment and plan: Dextrose/Sodium Chloride 1,000 mls @ 100 mls/hr IV Monitor intake and output Encourage fluids to maintain hydration Vital signs per protocol Daily weight Daily CBC, CMP (4) Intractable pain: Assessment and plan: Dextrose/Sodium Chloride 1,000 mls @ 100 mls/hr IV Hydromorphone Hcl 1 mg IV Q4H PRN Ondansetron Hcl 4 mg INJ Q6H PRN 1 unit of PRBCs transfused (5) Liver function failure: Assessment and plan: Dextrose/Sodium Chloride 1,000 mls @ 100 mls/hr IV 1 unit of PRBCs transfused Daily CBC CMP Continue home medications as directed. Qualifiers: Hepatic coma status: without hepatic coma Liver failure chronicity: chronic Qualified Code(s): K72.10 - Chronic hepatic failure without coma (6) Acquired hyperbilirubinemia: Assessment and plan: Dextrose/Sodium Chloride 1,000 mls @ 100 mls/hr IV 1 unit of PRBCs transfused Daily CBC CMP Continue home medications as directed. (7) Sickle cell anemia: Assessment and plan: Dextrose/Sodium Chloride 1,000 mls @ 100 mls/hr IV Hydromorphone Hcl 1 mg IV Q4H PRN Ondansetron Hcl 4 mg INJ Q6H PRN 1 unit of PRBCs transfused Daily CBC, CMP, retic count Continue home medications as directed. 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 Qualifiers: Heart failure chronicity: chronic Heart failure type: unspecified Qualified Code(s): I50.9 - Heart failure, unspecified (9) UTI (urinary tract infection): Assessment and plan: Dextrose/Sodium Chloride 1,000 mls @ 100 mls/hr IV Piperacillin Sod/Tazobactam Sod3.375 gm in Sodium Chloride 100 mls @ 200 mls/hr IV Q6H Monitor intake and output Encourage fluids to maintain hydration Vital signs per protocol Daily weight Daily CBC, CMP, BNP Blood cultures no growth on day 2 Plan Patient was admitted for transfusion of PRBCs, IV hydration, IV antibiotics and pain control. DS: Summary Hospital Course Hospital Course: This patient is 58 years old female with past medical history of sickle cell disease congestive heart failure liver cirrhosis and atrial fibrillation who presented to the ED with complaints of all over body aches worsening for the past several days. Patient states that her body aches started on Tuesday and have been getting worse. Patient reported that she thought maybe her hemoglobin was low.She ranked the pain as 8/10 on pain scale. Vital signs were normal. Patient denied any chest pain, headache, nausea vomiting. Admitted to med/surg for observation and treatment. Her hospital course remained uneventful. She was transfused with 1 unit of PRBCs and her hemoglobin and hematocrit are back to her baseline. Reticulocyte count remains elevated which seems to be patient's normal as well. LFTs remain elevated due to known cirrhosis. Her kidney function has improved with this mor hal's BUN 10 within normal limits, creatinine 0.8 within normal limits and GFR improving from 59.8 on admission to now 97.3 at discharge. She has received Zosyn IV piggyback for UTI. She reports her pain is much better and is requesting discharge home. Status at Discharge Cognitive/behavioral status at discharge: Alert and oriented Functional status at discharge: independent ambulation Overall status at discharge: patient is back to baseline Time Spent with Patient Time attestation: Total time spent providing and/or coordinating discharge services: Time spent: greater than 30 minutes Exam Exam: Patient is sitting up in bed making money bouquet for her grandmother on assess ent. Alert and oriented. Requesting discharge home. Constitutional: abnormal general appearance (chronically ill), no apparent distress, average body habitus, no limitations and alert Vital Signs - 24 hr 06/15/24 12:00 06/15/24 16:00 06/15/24 20:00 Temperature 98.7 F 98.8 F 98.3 F Pulse Rate Pulse Rate [Left B rachial] 72 70 78 Respiratory Rate 19 19 18 Blood Pressure Blood Pressure [Le ft Arm] 128/74 114/62 107/56 Pulse Oximetry 100 100 Oxygen Delivery Me thod Room Air Room Air Room Air 06/15/24 20:58 06/15/24 23:41 06/15/24 23:46 Temperature 98.6 F Pulse Rate 78 76 Pulse Rate [Left B rachial] 76 Respiratory Rate 16 Blood Pressure 107/56 120/61 Blood Pressure [Le ft Arm] 120/61 Pulse Oximetry 100 Oxygen Delivery Me thod Room Air 06/16/24 04:00 06/16/24 08:00 Temperature 98.9 F 99.0 F Pulse Rate Pulse Rate [Left B rachial] 71 73 Respiratory Rate 17 18 Blood Pressure Blood Pressure [Le ft Arm] 112/60 129/59 Pulse Oximetry 100 100 Oxygen Delivery Me thod Room Air Room Air HENMT: normocephalic, head/scalp atraumatic, hearing grossly normal bilaterally and external ears normal Eyes: PERRL, EOMs intact bilaterally, conjunctivae normal and no scleral icterus Neck/C-Spine: visual inspection normal, trachea midline, cervical spine nontender and cervical full ROM noted Lymph: no lymphadenopathy noted and no lymphedema noted Chest: inspection of chest normal and palpation of chest normal Respiratory: breath sounds equal bilaterally, normal respiratory effort and clear to auscultation bilaterally Cardiovascular: normal heart rate noted, regular rhythm noted, no gallop and no rub Gastrointestinal: abdomen normal to inspection, abdomen soft to palpation and nontender to palpation Genitourinary: no CVA tenderness, bladder normal to palpation and external appearance normal Back/Pelvis: spine normal to inspection, no thoracic spine tenderness and no lumbar spine tenderness Extremities: normal to inspection and normal to palpation Neurology: employment manager II-XII intact, no movement abnormality noted and no focal motor deficit noted Psychiatry: mental status grossly normal, oriented x3, thought process normal and cooperative Skin: skin color normal, no rash, no wounds, skin turgor normal and no mottling DS: Data Data Completed and Pending Labs on day of discharge: Labs from last 24 hours 06/16/24 05:25 WBC 14.0 H RBC 2.0 L Hgb 6.0 L* Hct 17.4 L* MCV 87.8 MCH 30.7 MCHC 35.0 RDW 17.6 H Plt Count 310 MPV 8.9 Gran % 47.6 L Lymph % (Auto) 33.9 [place] % (Auto) 13.0 H Eos % (Auto) 3.2 H Baso % (Auto) 2.3 H Lymph # (Auto) 4.7 H [place] # (Auto) 1.8 Eos # (Auto) 0.4 H Baso # (Auto) 0.3 H Absolute Gran (auto) 6.7 H Retic Count 5.8 H Sodium 141 Potassium 4.1 Chloride 111.0 H Carbon Dioxide 20 L Anion Gap 10.0 BUN 10 Creatinine 0.8 Estimated GFR 97.3 Glucose 136 H Calcium 8.4 L Phosphorus 4.1 Magnesium 1.6 L Total Bilirubin 3.35 H AST 110 H ALT 64 Alkaline Phosphatase 168 H B-Natriuretic Peptide 517.0 H Total Protein 7.2 Albumin 2.9 L Preliminary micro results at discharge 06/14/24 02:40 Blood Culture - Preliminary Blood - Venous Draw (Peripheral) Discharge Plan Discharge Disposition: Home, Self-Care Condition: Stable Discharge Medications: Continued amiodarone 200 mg tablet 200 mg PO BID cholecalciferol (vitamin D3) [Vitamin D3] 25 mcg (1,000 unit) capsule 50 mcg PO DAILY folic acid 1 mg tablet 1 mg PO BID hydromorphone 4 mg tablet 4 mg PO TID levothyroxine 75 mcg tablet 75 mcg PO DAILY magnesium oxide 400 mg (241.3 mg magnesium) tablet 400 mg PO DAILY midodrine 5 mg tablet 5 mg PO TID Xtampza ER 18 mg cap,sprinkl,ER12hr(DONT CRUSH) 18 mg PO BID Dominique-Joseph 0.8 mg tablet 1 tab PO DAILY hydroxyurea 500 mg capsule 500 mg PO Q12H Discharge Orders: Discharge Order (Routine); Ordered 06/16/24 Ordered By: Kathrin Diana Activity: resume usual activities as tolerated Diet: advance to your usual diet Interventions: MED/SURG & ICU Observation Charge Sheet Last Done: 06/16/24 05:57 Assessment: Returned to baseline. Plan of Treatment: Continue all medications as directed Follow-up with your primary care provider-call on Tuesday and schedule follow-up appointment for hospital discharge Encourage fluids to maintain hydration Patient Instructions: Dehydration (DC), Sickle Cell Crisis (DC), Sickle Cell Disease (DC) Activity Restrictions/Additional Instructions: Continue home medications as directed. It is important that you follow-up with your primary care provider. Call their office on Tuesday and schedule a follow-up appointment for hospital discharge. Encourage fluids to maintain hydration. Return immediately for any new/worsening/worrisome symptoms. Contact us should you not be able to obtain a follow-up appointment with your primary care provider. Forms: Portal/Health Info Access Inst Follow-Ups: Alexandre Solis [Primary Care Provider] - Meds Home Medications and Allergies Home Medications Medication Instructions Recorded Confirmed Type amiodarone 200 mg tablet 200 mg PO BID 03/10/24 06/14/24 History cholecalciferol (vitamin D3) 25 50 mcg PO DAILY 03/10/24 06/14/24 History mcg (1,000 unit) capsule (Vitamin D3) folic acid 1 mg tablet 1 mg PO BID 03/10/24 06/14/24 History hydromorphone 4 mg tablet 4 mg PO TID 03/10/24 06/14/24 History levothyroxine 75 mcg tablet 75 mcg PO DAILY 03/10/24 06/14/24 History magnesium oxide 400 mg (241.3 mg 400 mg PO DAILY 03/10/24 06/14/24 History magnesium) tablet midodrine 5 mg tablet 5 mg PO TID 03/10/24 06/14/24 History oxycodone myristate 18 mg capsule 18 mg PO BID 03/10/24 06/14/24 History sprinkle extended release 12hr(DON'T CRUSH) (Xtampza ER) vitamin B complex-vitamin C-folic 1 tab PO DAILY 03/10/24 06/14/24 History acid 0.8 mg tablet (Dominique-Joseph) hydroxyurea 500 mg capsule 500 mg PO Q12H 03/30/24 06/14/24 History Allergies Allergy/AdvReac Type Severity Reaction Status Date / Time adhesive tape Allergy Mild Rash Verified 06/13/24 22:58 ceftriaxone (From Rocephin) Allergy Mild Anaphylaxis Verified 06/13/24 22:58 iron Allergy Mild Anaphylaxis Verified 06/13/24 22:58 levofloxacin (From Levaquin) Allergy Mild Anaphylaxis Verified 06/13/24 22:58 morphine Allergy Mild Anaphylaxis Verified 06/13/24 22:58
[2024-06-16 12:19] VITALS: BP 126/76; PULSE 70; TEMP 98.7
== END 2024-06-16 13:34 | disposition home or self-care (01) ==
LOC: ED 22:09 → INTOOBSV 06-14 02:30 → MS 06-14 02:30
PROVIDERS: ADMIT Physician Assistant; ATTEND Family Medicine